=== PATIENT | female | born 1955 | race Caucasian/White ===

== ENCOUNTER 2019-04-17 11:53 | Day surgery (SDC) | payer MEDICAID ==
[~2019-04-17 11:53] MED LIST: Metoclopramide 10 MG/2 ML SDV IV PRN
[2019-04-17] MEDS: Sodium Chloride 0.9% 1,000 ML IV SCH (12:32)
[2019-04-17] MEDS ORDERED: Propofol 200 MG/20 ML SDV ONE (15:15)
--- NOTE | 2019-04-17 16:50 | OR ---
DATE OF OPERATION: 04/17/2019 PREOPERATIVE DIAGNOSIS: Family history of colon cancer and personal history of polyps. POSTOPERATIVE DIAGNOSIS: Family history of colon cancer and personal history of polyps. PROCEDURE: Colonoscopy with cecal polyp biopsies x2 and sigmoid polypectomy. ANESTHESIA: MAC. ESTIMATED BLOOD LOSS: Minimal. COMPLICATIONS: None. INDICATION FOR THE PROCEDURE: The patient is a 64-year-old female who is here today for surveillance colonoscopy. Last colonoscopy was 5 years ago. She has had a personal history of polyps in the past. Also has a family history of colon cancer. She otherwise denies any change in bowel habits over the last 5 years. DESCRIPTION OF PROCEDURE: Informed consent was obtained with the patient. The patient was taken to the operating room and placed on table in left lateral decubitus position. Monitored anesthesia care was administered. Digital rectal exam performed and was normal. Colonoscope was then advanced through the anus and directed toward the cecum. Cecum was reached by identification of appendiceal orifice and ileocecal valve. She did have a medium- sized sessile polyp adjacent to her appendiceal orifice. Cold forceps biopsy of this was taken. She also had a smaller semipedunculated polyp also within the cecum. Cold forceps biopsy of this was also taken. The colonoscope was then slowly withdrawn. She did have some mild sigmoid diverticulosis, which were small. A semipedunculated sigmoid polyp also identified and removed by hot snare polypectomy. The remainder of the colon was otherwise normal. Rectum also was normal. FINDINGS: Cecal polyps x2 and sigmoid polyp. RECOMMENDATIONS: We will need repeat colonoscopy with endoscopic mucosal resection for her larger cecal polyps. We will follow up on biopsies of these as well. EZE/[id number] /[id number]
== END 2019-04-17 17:45 | disposition home or self-care (01) ==
LOC: LB.SDS 11:53
PROVIDERS: ATTEND Surgery
DX: Z12.11 Encounter for screening for malignant neoplasm of colon (principal); D12.0 Benign neoplasm of cecum; D12.5 Benign neoplasm of sigmoid colon; Z86.010 Personal history of colon polyps; Z80.0 Family history of malignant neoplasm of digestive organs; Z88.0 Allergy status to penicillin
CPT/HCPCS: 82962; 88305; G0121; J2704; J7030

== ENCOUNTER 2022-05-09 10:28 | Emergency (ER) | payer MEDICARE, MEDICAID ==
[2022-05-09] MEDS ORDERED: Ondansetron 4 MG/2 ML SDV IVPUSH ONE (10:43)
[2022-05-09] MEDS ORDERED: Diltiazem 25 MG/5 ML SDV IVPUSH ONE (10:43)
[2022-05-09] MEDS ORDERED: Sodium Chloride 0.9% 1,000 ML IV ONE (10:44)
[2022-05-09] MEDS ORDERED: Ondansetron 4 MG Tab.DIS ONE (11:02)
[2022-05-09] MEDS ORDERED: Ondansetron 4 MG/2 ML SDV ONE (11:02)
[2022-05-09] MEDS ORDERED: Diltiazem 120 MG Cap.CD PO ONE (11:18)
[2022-05-09 11:29] LABS: ESTIMATED GFR 71 mL/min (>60)
== END 2022-05-09 11:56 | disposition home or self-care (01) ==
LOC: LB.ED 10:28
DX: I48.3 Typical atrial flutter (principal); E03.9 Hypothyroidism, unspecified; Z88.0 Allergy status to penicillin; Z79.4 Long term (current) use of insulin; Z79.899 Other long term (current) drug therapy
CPT/HCPCS: 36415; 71045; 80053; 84484; 85025; 93005; 96361; 96374; 96375; 99285; A9270; J2405; J3490; J7030; 93010; 99283

== ENCOUNTER 2022-05-16 08:47 | Emergency (ER) | payer MEDICARE, MEDICAID ==
[2022-05-16] MEDS: Diltiazem 25 MG/5 ML SDV IVPUSH ONE ×3 (09:47→10:45)
[2022-05-16] MEDS ORDERED: Sodium Chloride 0.9% 10 ML Syringe FLUSH PRN (09:51)
[2022-05-16] MEDS: GI Cocktail Oral Solution 30 ML PO ONE ×2 (10:43→12:07)
[2022-05-16] MEDS: Famotidine 20 MG/2 ML SDV IVPUSH ONE (10:45)
[2022-05-16 10:47] LABS: ESTIMATED GFR 82 mL/min (>60); TROPONIN I HIGH SENSITIVITY 10.7 pg/ml (<=60.4)
[2022-05-16] MEDS: Pantoprazole 40 MG Vial IVPUSH ONE (10:54)
[2022-05-17] MEDS: Pantoprazole 40 MG Vial ONE (07:35)
== END 2022-05-16 12:25 | disposition home or self-care (01) ==
LOC: LB.ED 08:47
DX: I48.3 Typical atrial flutter (principal); E03.9 Hypothyroidism, unspecified; Z88.0 Allergy status to penicillin; Z79.4 Long term (current) use of insulin; Z90.710 Acquired absence of both cervix and uterus
CPT/HCPCS: 36415; 74177; 80053; 81001; 83690; 83735; 84484; 85025; 93005; 96374; 96375; 96376; 99285; A9270; C9113; J3490; 93010; 99283

== ENCOUNTER 2022-05-17 14:00 | Emergency (ER) | payer MEDICARE, MEDICAID ==
[2022-05-17] MEDS ORDERED: Sodium Chloride 0.9% 10 ML Syringe FLUSH PRN (14:30)
[2022-05-17 15:21] LABS: ESTIMATED GFR 62 mL/min (>60)
== END 2022-05-17 16:10 | disposition home or self-care (01) ==
LOC: LB.ED 14:00
DX: R07.89 Other chest pain (principal); E11.9 Type 2 diabetes mellitus without complications; E03.9 Hypothyroidism, unspecified; I48.91 Unspecified atrial fibrillation; M19.90 Unspecified osteoarthritis, unspecified site; Z79.4 Long term (current) use of insulin; Z79.899 Other long term (current) drug therapy; Z88.0 Allergy status to penicillin
CPT/HCPCS: 36415; 71046; 80048; 83735; 84484; 85025; 93005; 93010; 99283; 99285

== ENCOUNTER 2022-12-07 21:15 | Emergency (ER) | payer MEDICARE, MEDICAID ==
[2022-12-07] MEDS: Sodium Chloride 0.9% 500 ML IV ONE (22:35)
[2022-12-07 23:39] VITALS: BP 128/76; PULSE 83
[2022-12-07] MEDS: Diltiazem 120 MG Cap.CD PO ONE (23:39)
[2022-12-07] MEDS: Metoprolol Tartrate 5 MG/5 ML SDV IVPUSH ONE (23:44)
== END 2022-12-08 00:20 | disposition home or self-care (01) ==
LOC: LB.ED 21:15
DX: I48.20 Chronic atrial fibrillation, unspecified (principal); E11.9 Type 2 diabetes mellitus without complications; E03.9 Hypothyroidism, unspecified; Z79.899 Other long term (current) drug therapy; Z79.4 Long term (current) use of insulin
CPT/HCPCS: 36415; 71045; 80048; 84484; 85025; 93005; 96360; 96361; 99283; 99285-25; A9270-GY; J7040

== ENCOUNTER 2023-03-20 17:19 | Emergency (ER) | payer MEDICARE, MEDICAID ==
[2023-03-20] MEDS: Aspirin 81 MG Tab.Chew PO ONE (17:25)
[2023-03-20] MEDS: Nitroglycerin 0.4 MG Tab.SL SL PRN (17:30)
[2023-03-20] MEDS: HYDROmorphone 2 MG/ML Syringe IVPUSH ONE (17:40)
[2023-03-20 17:46] LABS: BASOPHILS ABSOLUTE AUTO 0.02 K/uL (0.02-0.10); BASOPHILS PERCENT AUTO 0.2 % (0.0-0.5); EOSINOPHILS ABSOLUTE AUTO 0.19 K/uL (0.04-0.40); EOSINOPHILS PERCENT AUTO 1.9 % (1.0-5.0); LYMPHOCYTES ABSOLUTE AUTO 2.69 K/uL (1.50-4.00); LYMPHOCYTES PERCENT AUTO 26.6 % (20.0-40.0); MEAN CORPUSCULAR HEMOGLOBIN 32.6 pg (27.0-32.0); MEAN CORPUSCULAR HGB CONC 34.1 g/dL (31.0-35.0); MEAN CORPUSCULAR VOLUME 95 fL (76-96); MEAN PLATELET VOLUME 8.1 fL (6.0-10.0); MONOCYTES ABSOLUTE AUTO 0.86 K/uL (0.20-0.80); MONOCYTES PERCENT AUTO 8.5 % (3.0-10.0); NEUTROPHILS ABSOLUTE AUTO 6.36 K/uL (2.00-7.50); NEUTROPHILS PERCENT AUTO 62.8 % (45.0-70.0); PLATELET COUNT,PLT 215 K/uL (150-500); RED CELL DISTRIBUTION WIDTH 13.3 % (11.0-16.0); WHITE BLOOD CELL COUNT,WBC 10.1 K/uL (4.0-11.0)
[2023-03-20 17:50] VITALS: PULSE 90
[2023-03-20 17:55] VITALS: BP 146/95
[2023-03-20] MEDS: HYDROmorphone 2 MG/ML Syringe ONE (17:57)
[2023-03-20 18:10] LABS: A/G RATIO 0.9 (0.8-2.0); ALANINE AMINOTRANSFERASE,ALT 31 U/L (12-78); ALBUMIN 3.5 g/dL (3.4-5.0); ALKALINE PHOSPHATASE 78 U/L (46-116); ANION GAP 12.7 mmol/L (5.0-15.0); ASPARTATE AMNIOTRANSFERASE,AST 19 U/L (15-37); BILIRUBIN TOTAL 0.4 mg/dL (0.0-1.0); BLOOD UREA NITROGEN,BUN 21 mg/dL (8-26); BUN/CREATININE RATIO 17.6 (6-25); CALCIUM 9.4 mg/dL (8.5-10.1); CHLORIDE,CL 105 mmol/L (98-107); CREATININE 1.19 mg/dL (0.55-1.02); ESTIMATED GFR 50 mL/min (>60); GLUCOSE RANDOM 214 mg/dL (74-100); POTASSIUM,K 3.7 mmol/L (3.5-5.1); PROTEIN TOTAL,TP 7.3 g/dL (6.4-8.2); SODIUM,NA 142 mmol/L (136-145)
[2023-03-20 18:11] LABS: INR 1.1 (1.0-3.5); PTT,PARTIAL THROMBOPLSTIN TIME 26.9 SECONDS (24.4-33.2)
[2023-03-20 18:14] LABS: PROTHROMBIN TIME 10.9 sec (9.0-11.5)
[2023-03-20] MEDS ORDERED: Ketorolac 30 MG/ML SDV ONE (18:23)
[2023-03-20] MEDS: Ketorolac 30 MG/ML SDV IVPUSH ONE (18:28)
== END 2023-03-20 22:11 | disposition home or self-care (01) ==
LOC: LB.ED 17:19
DX: R09.1 Pleurisy (principal); I10 Essential (primary) hypertension; E11.9 Type 2 diabetes mellitus without complications; Z88.6 Allergy status to analgesic agent; Z88.0 Allergy status to penicillin; Z79.4 Long term (current) use of insulin; Z79.899 Other long term (current) drug therapy; Z90.710 Acquired absence of both cervix and uterus
CPT/HCPCS: 36415; 71045; 80053; 83735; 84484; 85025; 85610; 85730; 93005; 96374; 96375; 99285; A9270; J1170; J1885